=== PATIENT | female | born 1960 | race Caucasian/White ===

== ENCOUNTER 2017-01-07 22:56 | Emergency (ER) | payer BC ==
[2017-01-07 22:56] VITALS: O2SAT 97
[2017-01-07 23:23] VITALS: BP 144/89; PULSE 87; RESP 18; TEMP 97.5
== END 2017-01-07 23:38 | disposition home or self-care (01) ==
LOC: ED 22:56
DX: M79.621 Pain in right upper arm (principal)
CPT/HCPCS: 99282